=== PATIENT | male | born 1995 | race Caucasian/White ===

== ENCOUNTER 2024-04-01 10:15 | Emergency (ER) | payer OTHER ==
[2024-04-01 10:24] VITALS: TEMP 98.5
[2024-04-01] MEDS: ONDANSETRON 4 MG/2 ML VIAL IVP STA (10:32)
[2024-04-01] MEDS: HYDROmorphone 0.5 MG/0.5 ML SYRINGE IVP STA (10:32)
--- NOTE | 2024-04-01 10:33 | ED ---
General Adult HPI - General Stated complaint: Fall Time Seen by Provider: 04/01/24 10:16 Source: patient, RN notes reviewed Mode of arrival: EMS Limitations: no limitations - History of Present Illness Initial comments: 28-year-old male presents emergency department via EMS chief complaint of right leg injury. Patient states he was trying to step over a pile of laundry last night when he stepped awkwardly causing his leg to feel like it snapped. Patient complains of mid leg pain no other injuries he states again the bed states he was not unable to walk today so he called EMS. - Related Data Home Medications Medication Instructions Recorded Confirmed No Known Home Medications 04/01/24 04/01/24 Allergies Allergy/AdvReac Type Severity Reaction Status Date / Time No Known Allergies Allergy Verified 04/01/24 10:44 Review of Systems ROS Statement: Those systems with pertinent positive or pertinent negative responses have been documented in the HPI. ROS Other: All systems not noted in ROS Statement are negative. Past Medical History Past Medical History: No Reported History History of Any Multi-Drug Resistant Organisms: None Reported Past Surgical History: No Surgical Hx Reported Past Psychological History: No Psychological Hx Reported Smoking Status: Former smoker Past Alcohol Use History: Rare Past Drug Use History: Marijuana General Exam Limitations: no limitations General appearance: alert, in no apparent distress Head exam: Present: atraumatic, normocephalic, normal inspection Eye exam: Present: normal appearance, PERRL, EOMI. Absent: scleral icterus, conjunctival injection, periorbital swelling ENT exam: Present: normal exam, mucous membranes moist Neck exam: Present: normal inspection. Absent: tenderness, meningismus, lymphadenopathy Respiratory exam: Present: normal lung sounds bilaterally. Absent: respiratory distress, wheezes, rales, rhonchi, stridor Cardiovascular Exam: Present: normal rhythm, tachycardia, normal heart sounds. Absent: systolic murmur, diastolic murmur, rubs, gallop, clicks Extremities exam: Present: other (Right leg mid tib-fib tenderness, swelling noted, there is equal pedal pulses) Course Vital Signs 04/01/24 04/01/24 04/01/24 10:21 10:24 11:54 Temperature 98.5 F Pulse Rate 112 H 100 70 Respiratory 20 20 20 Rate Blood Pressure 180/115 160/118 162/98 O2 Sat by Pulse 98 98 98 Oximetry 04/01/24 13:00 Temperature Pulse Rate 68 Respiratory 16 Rate Blood Pressure 168/90 O2 Sat by Pulse 98 Oximetry Procedures - Orthopedic Splinting/Casting Injury #1 Side: right Upper Extremity Immobilizer: synthetic pre-padded splint Lower Extremity Injury Location: short leg Lower Extremity Immobilizer: posterior splint, synthetic pre-padded splint Medical Decision Making - Medical Decision Making Was pt. sent in by a medical professional or institution (SRIKANTH Dwyer, ACCREDITATION MANAGER, urgent care, hospital, or retirement...) When possible be specific @ -No Did you speak to anyone other than the patient for history (EMS, parent, family, police, friend...)? What history was obtained from this source @ -No Did you review nursing and triage notes (agree or disagree)? Why? @ -I reviewed and agree with nursing and triage notes Were old charts reviewed (outside hosp., previous admission, EMS record, old EKG, old radiological studies, urgent care reports/EKG's, retirement records)? Report findings @ -No old charts were reviewed Differential Diagnosis (chest pain, altered mental status, abdominal pain women, abdominal pain men, vaginal bleeding, weakness, fever, dyspnea, syncope, headache, dizziness, GI bleed, back pain, seizure, CVA, palpatations, mental health, musculoskeletal)? @ -Leg sprain, leg fracture EKG interpreted by me (3pts min.). @ -[None X-rays interpreted by me (1pt min.). @ -X-rays close proximal spiral fibular fracture with a distal tibia spiral fracture CT interpreted by me (1pt min.). @ -None done U/S interpreted by me (1pt. min.). @ -None done What testing was considered but not performed or refused? (CT, X-rays, U/S, labs)? Why? @ -None What meds were considered but not given or refused? Why? @ -None Did you discuss the management of the patient with other professionals (professionals i.e. SRIKANTH Dwyer, ACCREDITATION MANAGER, lab, RT, psych nurse, social studies teacher, criminal lawyer, teacher, small business banking officer, case management manager)? Give summary @ -Discussed the case with Dr. Prescott send recommended patient to be transferred to Dr. Valencia at [place]. I discussed case with Dr. Valencia who accepts case and recommends transfer. Was smoking cessation discussed for >3mins.? @ -No Was critical care preformed (if so, how long)? @ -No Were there social determinants of health that impacted care today? How? (Homelessness, low income, unemployed, alcoholism, drug addiction, transportation, low edu. Level, literacy, decrease access to med. care, usp, rehab)? @ -No Was there de-escalation of care discussed even if they declined (Discuss DNR or withdrawal of care, Hospice)? DNR status @ -No What co-morbidities impacted this encounter? (DM, HTN, Smoking, COPD, CAD, Cancer, CVA, ARF, Chemo, Hep., AIDS, mental health diagnosis, sleep apnea, morbid obesity)? @ -None Was patient admitted / discharged? Hospital course, mention meds given and route, prescriptions, significant lab abnormalities, going to OR and other pertinent info. @ -Transferred to [facility] for trauma orthopedic surgery Undiagnosed new problem with uncertain prognosis? @ -No Drug Therapy requiring intensive monitoring for toxicity (Heparin, Nitro, Insulin, Cardizem)? @ -No Were any procedures done? @ -No Diagnosis/symptom? @ -Right proximal fibular fracture, right distal tibia fracture Acute, or Chronic, or Acute on Chronic? @ -Acute Uncomplicated (without systemic symptoms) or Complicated (systemic symptoms)? @Uncomplicated Side effects of treatment? @ -No Exacerbation, Progression, or Severe Exacerbation? @ -No Poses a threat to life or bodily function? How? (Chest pain, [place], [place], pneumonia, PE, COPD, DKA, ARF, appy, cholecystitis, CVA, Diverticulitis, Homicidal, Suicidal, threat to staff... and all critical care pts) @ -Yes surgical risk Disposition Clinical Impression: Fracture, tibia and fibula Disposition: OTHER INSTITUTION NOT DEFINED Referrals: None,Stated [Primary Care Provider] - 1-2 days Time of Disposition: 13:27 - Out of Hospital Transfer - Req. Specs Out of Hospital Transfer - Requested Specifics: Other Emergency Center ([facility])
--- NOTE | 2024-04-01 11:18 | XR ---
EXAMINATION TYPE: XR tibia fibula RT DATE OF EXAM: 04/01/2024 11:06 AM CLINICAL INDICATION:Male, 28 years old with history of pain; [facility] COMPARISON: None TECHNIQUE: XR tibia fibula RT; tibia/fibula was examined in AP and lateral projections. FINDINGS/IMPRESSION: 1. Spiral fracture of the proximal right fibula with minimal displacement. Comminuted fracture of th e distal right fibula.There may be an underlying syndesmotic injury given fracture pattern. 2. Somewhat oblique fracture of the distal tibia diaphysis.
[2024-04-01] MEDS: HYDROmorphone 1 MG/ML 1 ML SYRINGE IVP STA (13:56)
[2024-04-01 14:07] VITALS: BP 140/98; PULSE 78; RESP 20
== END 2024-04-01 14:28 | disposition other institution (70) ==
LOC: EC 10:15
DX: S82.301A Unspecified fracture of lower end of right tibia, initial encounter for closed fracture (principal); S82.831A Other fracture of upper and lower end of right fibula, initial encounter for closed fracture; Z87.891 Personal history of nicotine dependence; X50.1XXA Overexertion from prolonged static or awkward postures, initial encounter
CPT/HCPCS: 99285; 29515; 73590; 96374; 96375; 96376; J2405; J1170 ×2